=== PATIENT | female | born 1975 | race Caucasian/White ===

== ENCOUNTER 2023-01-16 11:16 | Outpatient (CLI) | payer OTHER ==
[2023-01-16 13:02] LABS: Hemoglobin 14.3 g/dL (12.0-15.5); Mean Corpuscular HGB CONC 33.3 g/dL (32.0-36.0); Mean Corpuscular Hemoglobin 30.4 pg (27.0-33.0); Mean Corpuscular Volume 91.1 fl (81.6-98.3); Platelet Count 266 10x3/uL (150-450); RBC Distribution Width 13.2 % (11.5-14.5); Red Blood Cell (RBC) Count 4.71 10x6/uL (3.90-5.03); White Blood Cell (WBC) Count 7.2 10x3/uL (3.5-10.5)
[2023-01-16 13:32] LABS: Anion Gap 17 mmol/L (10-20); BUN (Urea Nitrogen) 20 mg/dL (7.0-18.7); Calc. Creatinine Clearance 0 mL/min (70-130); Calcium 8.9 mg/dL (7.8-10.44); Carbon Dioxide 21 mmol/L (22-29); Chloride 104 mmol/L (98-107); Estimated GFR 96; Glucose 85 mg/dL (70-105); Potassium 4.1 mmol/L (3.5-5.1); Sodium 138 mmol/L (136-145)
[2023-01-16 13:35] LABS: INR-International Normal Ratio 0.9; PTT 29.4 sec (22.0-33.0); Prothrombin Time 9.8 sec (9.5-12.1)
== END 2023-01-16 11:17 | disposition home or self-care (01) ==
LOC: LABBT 11:16
PROVIDERS: ATTEND Surgery
DX: Z01.818 Encounter for other preprocedural examination (principal); M48.02 Spinal stenosis, cervical region
CPT/HCPCS: 80048; 85027; 85610; 85730; 93005; 93010

== ENCOUNTER 2023-01-21 06:07 | Observation (INO) | payer OTHER ==
[2023-01-21] MEDS ORDERED: Thrombin 5000 UNITS/5 ML VIAL ONE (06:38)
[2023-01-21] MEDS ORDERED: CEFAZOLIN 2 GM VIAL ONE (07:11)
[2023-01-21] MEDS ORDERED: Sodium Chloride 0.9% 100 ML ONE (07:11)
[2023-01-21] MEDS ORDERED: Fentanyl 250 MCG/5 ML VIAL ONE (07:13)
[2023-01-21] MEDS ORDERED: Midazolam HCl 2 mg/2 ml Vial ONE (07:20)
[2023-01-21] MEDS ORDERED: NEOSTIGMINE 3 MG/3 ML SYR 3 MG/3 ML SYRINGE ONE (07:33)
[2023-01-21] MEDS ORDERED: Dexamethasone 20 MG/5 ML VIAL ONE (07:33)
[2023-01-21] MEDS ORDERED: Lidocaine 1% PF 5 ML VIAL ONE (07:33)
[2023-01-21] MEDS ORDERED: PROPOFOL 200 MG/20 ML VIAL ONE (07:33)
[2023-01-21] MEDS ORDERED: Glycopyrrolate 0.2 MG/ML 5 ML SYRINGE ONE (07:33)
[2023-01-21] MEDS ORDERED: Ondansetron PF 4 MG/2 ML Vial ONE (07:33)
[2023-01-21] MEDS ORDERED: Rocuronium Bromide 10 MG/ML (10ML VIAL) ONE (07:33)
[2023-01-21] MEDS ORDERED: Morphine Sulfate 2 MG/ML SYRINGE SLOW IVP PRN (09:26)
[2023-01-21] MEDS ORDERED: Promethazine HCl 25 MG/ML VIAL IM PRN (09:26)
[2023-01-21] MEDS ORDERED: Ondansetron HCl/PF 4 MG/2 ML Vial IVP PRN (09:26)
[2023-01-21] MEDS ORDERED: HYDROmorphone 2 MG/ML VIAL SLOW IVP PRN (09:26)
[2023-01-21] MEDS ORDERED: PACU-Morphine 4MG/ML VIAL SLOW IVP PRN (09:26)
[2023-01-21] MEDS ORDERED: SUGAMMADEX SODIUM 200 MG/2 ML VIAL ONE (09:55)
[2023-01-21] MEDS ORDERED: Ondansetron PF 4 MG/2 ML Vial IVP PRN (10:06)
[2023-01-21] MEDS ORDERED: Acetaminophen 325 MG TAB PO PRN (10:06)
[2023-01-21] MEDS ORDERED: Morphine 2 MG/ML VIAL SLOW IVP PRN (10:06)
[2023-01-21] MEDS ORDERED: tiZANidine HCl 4 MG TAB PO PRN (10:07)
[2023-01-21] MEDS ORDERED: hydrALAZINE 20 MG/ML VIAL SLOW IVP PRN (10:07)
[2023-01-21] MEDS ORDERED: DIPHENHYDRAMINE HCL 25 MG PO PRN (10:09)
[2023-01-21] MEDS ORDERED: fentaNYL 50 mcg/mL 1 mL Vial ONE ×2 (10:34→11:01)
[2023-01-21] MEDS ORDERED: HYDROmorphone 2 MG/ML VIAL ONE (11:09)
[2023-01-21] MEDS ORDERED: diphenhydrAMINE 25 MG CAP PO PRN (12:15)
[2023-01-21] MEDS: CEFAZOLIN 2 GM in Sodium Chloride 0.9% 100 ML IVPB SCH ×3 (13:06→22:47)
[2023-01-21] MEDS: Gabapentin 400 MG CAP PO SCH ×2 (13:07→20:25)
[2023-01-21] MEDS: Sodium Chloride 0.9% 1,000 ML IV SCH (13:07)
[2023-01-21] MEDS: HYDROcodone/Acetaminophen 7.5/325 mg Tablet PO PRN ×2 (13:10→18:43)
[2023-01-21 13:36] VITALS: BMI 30.5
[2023-01-21] MEDS ORDERED: Non-Formulary Item 1 EACH (Gabapentin [Gabapentin] 800 MG Tablet) PO SCH (15:00)
[2023-01-21] MEDS: Acetaminophen/Codeine 30-300mg Tablet PO PRN ×2 (16:10→22:55)
[2023-01-21] MEDS: traMADol HCl 50 MG TAB PO PRN (20:22)
[2023-01-22] MEDS: Sodium Chloride 0.9% 1,000 ML IV SCH (01:15)
[2023-01-22] MEDS: traMADol HCl 50 MG TAB PO PRN (02:47)
[2023-01-22] MEDS: CEFAZOLIN 2 GM in Sodium Chloride 0.9% 100 ML IVPB SCH (05:48)
[2023-01-22 08:43] VITALS: BP 146/87; TEMP 98.5
[2023-01-22] MEDS: Gabapentin 400 MG CAP PO SCH (09:34)
[2023-01-22] MEDS: HYDROcodone/Acetaminophen 7.5/325 mg Tablet PO PRN (09:34)
[2023-01-22] MEDS: Acetaminophen/Codeine 30-300mg Tablet PO PRN (11:40)
== END 2023-01-22 12:16 | disposition home or self-care (01) ==
LOC: SDC 06:07 → MSONC 10:10
PROVIDERS: ADMIT Surgery; ATTEND Surgery
PROC: 0RG20A0 Fusion of 2 or more Cervical Vertebral Joints with Interbody Fusion Device, Anterior Approach, Anterior Column, Open Approach (ICD-10-PCS; principal; 2023-01-21)
PROC: 0RT30ZZ Resection of Cervical Vertebral Disc, Open Approach (ICD-10-PCS; 2023-01-21)
DX: M48.02 Spinal stenosis, cervical region (principal); F17.200 Nicotine dependence, unspecified, uncomplicated; Z79.899 Other long term (current) drug therapy
CPT/HCPCS: C1713; J1100; J1170; J2250; J2272; J2405; J2704; J3010; J3490; J7050